=== PATIENT | male | born 1980 | race Caucasian/White ===

== ENCOUNTER 2016-06-05 15:28 | Outpatient (CLI) | payer OTHER | END 2016-06-05 15:29 | disposition home or self-care (01) | DX: M51.27 Other intervertebral disc displacement, lumbosacral region (principal); M51.26 Other intervertebral disc displacement, lumbar region; M51.37 Other intervertebral disc degeneration, lumbosacral region; M51.36 Other intervertebral disc degeneration, lumbar region; M41.9 Scoliosis, unspecified ==

== ENCOUNTER 2018-10-30 15:32 | Emergency (ER) | payer OTHER ==
[2018-10-30 15:44] VITALS: BP 119/73
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
== END 2018-10-30 16:24 | disposition home or self-care (01) ==
LOC: ED 15:32
DX: S39.012A Strain of muscle, fascia and tendon of lower back, initial encounter (principal); M54.2 Cervicalgia; M25.552 Pain in left hip; V43.52XA Car driver injured in collision with other type car in traffic accident, initial encounter; Y92.410 Unspecified street and highway as the place of occurrence of the external cause
CPT/HCPCS: 99282; 99283